=== PATIENT | male | born 1950 | race Caucasian/White ===

== ENCOUNTER 2017-11-18 16:42 | Emergency (ER) | payer MEDICARE ==
[~2017-11-18] VITALS: Ht 157.5 cm; Wt 49.7 kg
[2017-11-18 17:13] LABS: BASOPHILS % (AUTO) 0.5 % (0-1); EOSINOPHILS # (AUTO) 0.1 X10'3 (0-0.9); HEMATOCRIT 35.3 % (42.0-52.0); HEMOGLOBIN 11.8 g/dl (14.0-17.9); LYMPHOCYTES # (AUTO) 1.1 X10'3 (1.1-4.8); LYMPHOCYTES % (AUTO) 33.9 % (21-51); MEAN CORPUSCULAR HEMOGLOBIN 30.1 PG (27.0-31.0); MEAN CORPUSCULAR HGB CONC 33.4 % (33.0-36.5); MEAN CORPUSCULAR VOLUME 90.1 FL (78-98); MEAN PLATELET VOLUME 9.9 FL (7.4-10.4); MONOCYTES # (AUTO) 0.4 X10'3 (0-0.9); MONOCYTES % (AUTO) 11.4 % (2-12); NEUTROPHILS # (AUTO) 1.7 X10'3 (1.8-7.7); NEUTROPHILS % (AUTO) 52.2 % (42-75); PLATELET COUNT 203 X10'3 (140-440); RED BLOOD COUNT 3.92 X10'6 (4.70-6.10); RED CELL DISTRIBUTION WIDTH 15.9 % (11.5-14.5); WHITE BLOOD COUNT 3.3 X10'3 (4.5-11.0)
[2017-11-18] MEDS ORDERED: normal saline 1000ML IV soln IVB ONE (17:15)
[2017-11-18 17:21] LABS: PARTIAL THROMBOPLASTIN TIME 27 SECONDS (22-32); PROTHROMBIN TIME 10.5 SECONDS (9.0-12.0)
[2017-11-18 17:25] LABS: ALANINE AMINOTRANSFERASE 89 U/L (12-78); ALBUMIN 3.5 G/DL (3.4-5.0); ALKALINE PHOSPHATASE 52 IU/L (46-116); ANION GAP 12 (8-16); ASPARTATE AMINO TRANSFERASE 71 U/L (10-37); BILIRUBIN,TOTAL 0.5 MG/DL (0.1-1.0); BLOOD UREA NITROGEN 11 MG/DL (7-18); BUN/CREATININE RATIO 11.6 (5.4-32.0); CALCIUM 8.2 MG/DL (8.5-10.1); CHLORIDE 103 MMOL/L (99-107); CREATININE 0.95 MG/DL (0.60-1.10); GLUCOSE 184 MG/DL (70-104); POTASSIUM 4.2 MMOL/L (3.5-5.1); SODIUM 143 MMOL/L (135-145); TOTAL CARBON DIOXIDE 27.9 MMOL/L (24-32); TOTAL PROTEIN 7.1 G/DL (6.4-8.2); eGFR 79 ML/MIN
[2017-11-18 18:53] LABS: CLARITY,URINE SLIGHTLY CLOUDY (Clear); COLOR,URINE YELLOW (Yellow); GLUCOSE, URINE NEGATIVE (Neg); KETONES,URINE NEGATIVE (Neg); LEUKOCYTE ESTERASE ,URINE NEGATIVE (Neg); NITRITES, URINE NEGATIVE (Neg); OCCULT BLOOD,URINE SMALL (Neg); PH,URINE 5.5 (4.8-8.0); PROTEIN,URINE NEGATIVE (Neg); UROBILINOGEN,URINE 0.2 E.U/dL (0.2-1.0)
[2017-11-18 18:54] LABS: UA COLLECTION TYPE STRAIGHT CATH
[2017-11-18 19:00] LABS: BACTERIA,URINE FEW /HPF (Neg); HYALINE CASTS 0-3 /LPF (NEGATIVE); MUCUS STRANDS FEW /LPF (Neg); SQUAMOUS EPITHELIAL CELL,UR FEW /LPF (FEW); WBC,URINE 0-4 /HPF (0-4)
[2017-11-18 19:09] VITALS: BP 115/76
== END 2017-11-18 19:10 | disposition home or self-care (01) ==
LOC: ER 16:43
DX: E86.0 Dehydration (principal); I10 Essential (primary) hypertension; E78.00 Pure hypercholesterolemia, unspecified; Z88.8 Allergy status to other drugs, medicaments and biological substances
CPT/HCPCS: 36415; 71045; 80053; 81001; 84484; 85025; 85610; 85730; 93005; 96360; 99285; J7030

== ENCOUNTER 2018-02-27 14:20 | Emergency (ER) | payer MEDICARE ==
[~2018-02-27] VITALS: Ht 157.5 cm; Wt 53.0 kg
[2018-02-27] MEDS ORDERED: normal saline 1000ML IV soln IV ONE (14:35)
[2018-02-27 14:49] LABS: BASOPHILS # (AUTO) 0.1 X10'3 (0-0.2); BASOPHILS % (AUTO) 0.7 % (0-1); EOSINOPHILS # (AUTO) 0.1 X10'3 (0-0.9); EOSINOPHILS % (AUTO) 1.8 % (0-6); HEMATOCRIT 36.8 % (42.0-52.0); HEMOGLOBIN 12.2 g/dl (14.0-17.9); LYMPHOCYTES # (AUTO) 2.9 X10'3 (1.1-4.8); MEAN CORPUSCULAR HEMOGLOBIN 29.7 PG (27.0-31.0); MEAN CORPUSCULAR HGB CONC 33.1 % (33.0-36.5); MEAN CORPUSCULAR VOLUME 89.8 FL (78-98); MEAN PLATELET VOLUME 9.8 FL (7.4-10.4); MONOCYTES # (AUTO) 0.6 X10'3 (0-0.9); MONOCYTES % (AUTO) 7.3 % (2-12); NEUTROPHILS # (AUTO) 4.3 X10'3 (1.8-7.7); NEUTROPHILS % (AUTO) 54.2 % (42-75); PLATELET COUNT 225 X10'3 (140-440)
[2018-02-27 15:04] LABS: PARTIAL THROMBOPLASTIN TIME 26 SECONDS (22-32); PROTHROMBIN TIME 10.4 SECONDS (9.0-12.0)
[2018-02-27 15:05] LABS: CLARITY,URINE CLEAR (Clear); COLOR,URINE DARK YELLOW (Yellow); GLUCOSE, URINE NEGATIVE (Neg); KETONES,URINE >=80 mg/dl (Neg); LEUKOCYTE ESTERASE ,URINE NEGATIVE (Neg); NITRITES, URINE NEGATIVE (Neg); OCCULT BLOOD,URINE NEGATIVE (Neg); PH,URINE 5.5 (4.8-8.0); PROTEIN,URINE NEGATIVE (Neg); UA COLLECTION TYPE STRAIGHT CATH
[2018-02-27 15:05] LABS: ANION GAP 20 (8-16); BILIRUBIN,TOTAL 0.7 MG/DL (0.1-1.0); BLOOD UREA NITROGEN 18 MG/DL (7-18); BUN/CREATININE RATIO 19.8 (5.4-32.0); CALCIUM 8.9 MG/DL (8.5-10.1); CHLORIDE 104 MMOL/L (99-107); CREATININE 0.91 MG/DL (0.60-1.10); GLUCOSE 142 MG/DL (70-104); MAGNESIUM 1.5 MG/DL (1.5-2.4); POTASSIUM 3.6 MMOL/L (3.5-5.1); SODIUM 140 MMOL/L (135-145); TOTAL CARBON DIOXIDE 16.5 MMOL/L (24-32); TOTAL PROTEIN 7.2 G/DL (6.4-8.2); eGFR 83 ML/MIN
[2018-02-27 15:06] LABS: ALANINE AMINOTRANSFERASE 79 U/L (12-78); ALBUMIN 3.6 G/DL (3.4-5.0); ALKALINE PHOSPHATASE 74 IU/L (46-116); ASPARTATE AMINO TRANSFERASE 64 U/L (10-37)
[2018-02-27] MEDS ORDERED: proCHLORperazine 10 MG/2 ml inj IV STA (15:24)
[2018-02-27] MEDS ORDERED: LORazepam 2 mg/ml vial IV ONE (15:25)
[2018-02-27] MEDS ORDERED: morphine 4 MG/ML inj SYRINge IV ONE (15:25)
[2018-02-27] MEDS ORDERED: diphenhydrAMINE 50 mg/ml inj IV ONE (15:25)
[2018-02-27] MEDS ORDERED: normal saline 1000ML IV soln IVB ONE (16:00)
--- NOTE | 2018-02-27 16:32 | NUR ---
patient to ct.received a verbal order from dr. leroy to admin total ns 3000 instead of total 4000ml.
[2018-02-27 17:12] LABS: CREATINE KINASE 20 U/L (26-192)
[2018-02-27 17:39] VITALS: BP 131/60
[2018-02-27] MEDS ORDERED: ONDA4TAB12 PO (18:30)
== END 2018-02-27 18:40 | disposition home or self-care (01) ==
LOC: ER 14:21 → EDSEX 14:21 → ER 18:40
DX: M54.9 Dorsalgia, unspecified (principal); E86.0 Dehydration; E78.00 Pure hypercholesterolemia, unspecified; I10 Essential (primary) hypertension; M19.90 Unspecified osteoarthritis, unspecified site; Z88.8 Allergy status to other drugs, medicaments and biological substances; Z79.899 Other long term (current) drug therapy
CPT/HCPCS: 36415; 71045; 74176; 80053; 81003; 82550; 83605; 83735; 84145; 85025; 85610; 85730; 87040; 93005; 96361; 96374; 96375; 99284; J0780; J1200; J2060; J2270; J7030

== ENCOUNTER 2018-03-08 10:20 | Inpatient (IN) | payer MEDICARE | END 2018-03-11 14:07 | disposition home or self-care (01) | LOC: SUR 3N 03-09 21:50 → ER 10:20 → SUR 3N 03-10 07:00 → ED HOLD 14:13 → PCU 3S 20:56 | DX: J10.1 Influenza due to other identified influenza virus with other respiratory manifestations (principal); G93.41 Metabolic encephalopathy; E86.0 Dehydration; E87.6 Hypokalemia ==

== ENCOUNTER 2020-04-18 09:09 | Emergency (ER) | payer MEDICARE ==
[~2020-04-18] VITALS: Ht 160 cm; Wt 124.0 kg
[~2020-04-18 09:09] MED LIST: ASPI81TA52 PO; ATOR80TA PO; CALC-855 PO; DENO60DI; ESCI-8 PO; FOLI0.4T2 PO; LOSA100T57 PO; METF-950 PO; METH2.5T55 PO; METO-395 PO; ONDA4TAB12 PO; PANT40TA54 PO; REM100I INFIL; VALB40CA PO
[2020-04-18] MEDS ORDERED: normal saline 1000ML IV soln IVB ONE (10:10)
[2020-04-18 10:48] LABS: BASOPHILS % (AUTO) 0.5 % (0-1); EOSINOPHILS # (AUTO) 0.2 X10'3 (0-0.9); HEMATOCRIT 38.7 % (35.0-45.0); HEMOGLOBIN 12.8 g/dl (12.0-16.0); LYMPHOCYTES # (AUTO) 1.9 X10'3 (1.1-4.8); LYMPHOCYTES % (AUTO) 20.7 % (21-51); MEAN CORPUSCULAR HEMOGLOBIN 29.9 PG (27.0-31.0); MEAN CORPUSCULAR VOLUME 90.6 FL (78-98); MEAN PLATELET VOLUME 9.2 FL (7.4-10.4); MONOCYTES # (AUTO) 0.7 X10'3 (0-0.9); MONOCYTES % (AUTO) 7.5 % (2-12); NEUTROPHILS # (AUTO) 6.3 X10'3 (1.8-7.7); NEUTROPHILS % (AUTO) 69.3 % (42-75); PLATELET COUNT 257 X10'3 (140-440); RED BLOOD COUNT 4.27 X10'6 (4.20-5.60); RED CELL DISTRIBUTION WIDTH 14.7 % (11.5-14.5); WHITE BLOOD COUNT 9.1 X10'3 (4.5-11.0)
[2020-04-18 10:53] LABS: ABG HCO3 13.8 mmol/L (22.0-26.0); ABG OXYGEN SATURATION 98.6 % (94-97); ABG PCO2 (T) 12.8 mmHg (32.0-45.0); ABG PO2 (T) 111.5 mmHg (75.0-100.0); ALLEN'S TEST POSITIVE; FCOHb 0.3 % (0.0-3.9); FMetHb 0.1 % (0.0-1.5); FO2Hb 98.2 % (94-97); PATIENT TEMPERATURE 36.5; TOTAL HEMOGLOBIN 12.8 G/dl (12.0-16.0)
[2020-04-18 11:05] LABS: ALANINE AMINOTRANSFERASE 32 U/L (12-78); ALBUMIN 3.3 G/DL (3.4-5.0); ALBUMIN/GLOBULIN RATIO 0.8 (1.1-1.5); ALKALINE PHOSPHATASE 79 IU/L (46-116); ANION GAP 17 (8-16); ASPARTATE AMINO TRANSFERASE 23 U/L (10-37); BILIRUBIN,TOTAL 0.4 MG/DL (0.1-1.0); BLOOD UREA NITROGEN 18 MG/DL (7-18); BUN/CREATININE RATIO 17.1 (6.6-38.0); CALCIUM 9.1 MG/DL (8.5-10.1); CHLORIDE 105 MMOL/L (99-107); CREATININE 1.05 MG/DL (0.40-0.90); GLUCOSE 243 MG/DL (70-104); POTASSIUM 3.7 MMOL/L (3.5-5.1); SODIUM 142 MMOL/L (135-145); TOTAL CARBON DIOXIDE 20.2 MMOL/L (24-32); TOTAL PROTEIN 7.7 G/DL (6.4-8.2); eGFR 52 ML/MIN
[2020-04-18 11:07] LABS: LACTIC SEPSIS 1.7 MMOL/L (0.4-2.0)
[2020-04-18 11:08] LABS: TROPONIN I < 0.04 NG/ML (0.0-0.05)
[2020-04-18 11:24] LABS: AMMONIA < 10 UMOL/L (11-32)
--- NOTE | 2020-04-18 12:26 | NUR ---
Pt refused straight cath, provider aware.
--- NOTE | 2020-04-18 13:24 | NUR ---
Pt up to bedside comode to attempt to give urine sample.
--- NOTE | 2020-04-18 13:40 | NUR ---
Pt unable to urinate at this time, sister at bedside and will try to get Pt to consent to straight cath.
[2020-04-18 15:35] LABS: URINE AMPHETAMINE SCREEN NEGATIVE (Neg); URINE BARBITUATE SCREEN NEGATIVE (Neg); URINE BENZODIAZEPINES SCREEN NEGATIVE (Neg); URINE CANNABINOID SCREEN NEGATIVE (Neg); URINE COCAINE SCREEN NEGATIVE (Neg); URINE METHADONE SCREEN NEGATIVE (Neg); URINE OPIATE SCREEN POSITIVE (Neg); URINE PHENCYCLIDINE SCREEN NEGATIVE (Neg)
[2020-04-18 15:48] LABS: CLARITY,URINE CLEAR (Clear); COLOR,URINE YELLOW (Yellow); GLUCOSE, URINE >=1000 mg/dl (Neg); KETONES,URINE TRACE mg/dl (Neg); LEUKOCYTE ESTERASE ,URINE NEGATIVE (Neg); NITRITES, URINE NEGATIVE (Neg); OCCULT BLOOD,URINE NEGATIVE (Neg); PROTEIN,URINE NEGATIVE (Neg)
[2020-04-18 15:53] LABS: UA COLLECTION TYPE STRAIGHT CATH
[2020-04-18 15:55] LABS: BACTERIA,URINE NONE SEEN /HPF (Neg); MUCUS STRANDS NONE SEEN /LPF (Neg); RBC,URINE NONE SEEN /HPF (0-2); SQUAMOUS EPITHELIAL CELL,UR FEW /LPF (FEW); WBC,URINE 0-4 /HPF (0-4)
[2020-04-18 16:45] VITALS: BP 128/70
== END 2020-04-18 16:48 | disposition home or self-care (01) ==
LOC: ER 09:10
DX: R30.9 Painful micturition, unspecified (principal); R06.89 Other abnormalities of breathing; R41.82 Altered mental status, unspecified; E78.00 Pure hypercholesterolemia, unspecified; I10 Essential (primary) hypertension; E11.9 Type 2 diabetes mellitus without complications; F17.200 Nicotine dependence, unspecified, uncomplicated; Z88.8 Allergy status to other drugs, medicaments and biological substances; Z79.82 Long term (current) use of aspirin; Z79.899 Other long term (current) drug therapy
CPT/HCPCS: 36415; 36600; 70450; 71045; 80053; 80305; 81001; 82140; 82803; 82948; 83605; 84484; 85018; 85025; 87040; 93005; 96360; 99285; J7030

== ENCOUNTER 2020-06-02 13:39 | Emergency (ER) | payer MEDICARE ==
[~2020-06-02] VITALS: Ht 160 cm; Wt 57.3 kg
[~2020-06-02 13:39] MED LIST changes: -FOLI0.4T2 PO; +FOLI0.4T6 PO; -VALB40CA PO; +VALB40CA2 PO
[2020-06-02 13:51] VITALS: BP 156/79
--- NOTE | 2020-06-02 14:38 | NUR ---
assisted pt to bathroom and back
[2020-06-02] MEDS ORDERED: diphenhydrAMINE 25mg capsule PO ONE (14:50)
[2020-06-02] MEDS ORDERED: dexamethasone 4mg tablet PO ONE (14:50)
[2020-06-02] MEDS ORDERED: famotidine 20mg tablet PO ONE (14:50)
[2020-06-02] MEDS ORDERED: PRED20TA PO (14:52)
[2020-06-02] MEDS ORDERED: HYDR-3686 PO (14:52)
[2020-06-02] MEDS ORDERED: CEPH-585 PO (14:52)
[2020-06-02] MEDS ORDERED: TETanus/Pertussis (Acell)/Diphther VAC/PF (Tdap-Adult) 0.5ml syringe IMVAC ONE (15:15)
[2020-06-02] MEDS ORDERED: bacitracin 15gm ointment TP ONE (15:15)
== END 2020-06-02 15:56 | disposition home or self-care (01) ==
LOC: ER 13:40
DX: R21 Rash and other nonspecific skin eruption (principal); T50.995A Adverse effect of other drugs, medicaments and biological substances, initial encounter; E78.00 Pure hypercholesterolemia, unspecified; I10 Essential (primary) hypertension; M19.90 Unspecified osteoarthritis, unspecified site; F03.90 Unspecified dementia, unspecified severity, without behavioral disturbance, psychotic disturbance, mood disturbance, and anxiety; Z88.8 Allergy status to other drugs, medicaments and biological substances; Z79.82 Long term (current) use of aspirin; Z79.899 Other long term (current) drug therapy; Y92.89 Other specified places as the place of occurrence of the external cause
CPT/HCPCS: 99284; Q0163